=== PATIENT | male | born 1990 | race Hispanic/Latino ===

== ENCOUNTER → 2017-03-24 | Outpatient (CLI) | payer OTHER ==
--- NOTE | 2017-03-28 08:39 | MRI ---
Study: MRI of the Right Ankle. Indication: SPRAIN OF UNSPECIFIED LIGAMENT OF ANKLE Technique: Multiplanar, multi sequence MRI of the right ankle was obtained without intravenous contrast. Comparison: None. Findings: Acute full-thickness tear of the talar attachment anterior talofibular ligament noted with full-thickness tearing of the anterior tibiofibular ligament and partial thickness tearing posterior tibiofibular ligament. A syndesmotic injury has occurred with marked edema throughout the distal tibiofibular syndesmosis which is slightly widened at 5 mm. Posterior talofibular ligament and calcaneofibular ligament intact. Full-thickness tearing of the deep deltoid ligament noted centrally with high grade partial thickness tearing of the proximal aspects of the superficial deltoid ligament and the spring ligament. Moderate tibiotalar joint effusion. Extensive surrounding subcutaneous edema. Mild marrow edema in the posterior margin tibial plafond which may be contusive or avulsive in etiology. No displaced fracture, advanced osteoarthritis, or talar coalition. Fluid distention of the medial and peroneal tendon sheaths without tendinosis or tear. Anterior tendons and Achilles tendon intact. Plantar fascia intact. Impression: Sequela of an inversion injury with extensive lateral and medial ankle ligament tearing including a syndesmotic injury as detailed above. Mild marrow edema posterior tibial plafond likely contusive or avulsive in etiology. No displaced fracture. Electronically signed by: Naseem Wu MD 03/28/2017 8:37 AM [facility]
== END | disposition home or self-care (01) ==
LOC: MRI 10:07
DX: S93.401A Sprain of unspecified ligament of right ankle, initial encounter (principal)